=== PATIENT | male | born 1945 | race African-American/Black ===

== ENCOUNTER 2021-09-13 13:36 | Emergency (ER) | payer SELFPAY ==
[~2021-09-13] VITALS: Ht 167.6 cm; Wt 71.0 kg
[2021-09-13] MEDS ORDERED: SODIUM CHLORIDE 0.9% 1,000 ML IV ONE (15:30)
[2021-09-13 16:32] LABS: BASOPHILS % 0.2 % (0.0-2.0); EOSINOPHILS % 0.1 % (0.0-5.0); HEMATOCRIT. 29.1 % (42.0-52.0); HEMOGLOBIN. 9.1 g/dL (14.0-18.0); LYMPHOCYTES % 9.2 % (20.0-50.0); MEAN CORPUSCULAR HEMOGLOBIN 26.6 pg (28.0-32.0); MEAN CORPUSCULAR VOLUME 84.6 fL (80.0-94.0); MONOCYTES % 6.1 % (2.0-8.0); NEUTROPHILS % 84.4 % (40.0-76.0); PLATELET 246 x1000/uL (130-400); RED BLOOD CELL COUNT 3.44 mill/uL (4.7-6.1); RED CELL DISTRIBUTION WIDTH 18.1 % (11.6-14.6)
[2021-09-13 16:38] LABS: CHLORIDE 111 mEq/L (98-107)
[2021-09-13 16:49] LABS: ETHANOL BLOOD < 10 mg/dL
[2021-09-13 18:00] VITALS: BP 147/64
== END 2021-09-13 18:40 | disposition left against medical advice (07) ==
LOC: ER 13:57
DX: N17.9 Acute kidney failure, unspecified (principal)
CPT/HCPCS: 36415; 71045; 80053; 80320; 82140; 83690; 83880; 84484; 85025; 93005; 96360; 99285; J7030; Z7610; G0480